=== PATIENT | male | born 1960 | race Caucasian/White ===

== ENCOUNTER 2019-06-09 11:05 | Day surgery (SDC) | payer OTHER ==
[~2019-06-09] VITALS: Ht 182.9 cm; Wt 77.1 kg
[~2019-06-09 11:05] MED LIST: CEFAZOLIN SOD 2 GM in D5W 50 ML IV ONE
[2019-06-09] MEDS ORDERED: HYDROmorphone 1 MG INJ. 1 MG/ML AMPUL IVP PRN ×2 (13:30)
[2019-06-09] MEDS ORDERED: ONDANSETRON HCL 4 MG/2 ML VIAL IVP PRN (13:30)
[2019-06-09] MEDS ORDERED: POLYMYXIN 500,000/BACIT.10,000 UNITS in NS IRR 1 L IR ONE (13:52)
[2019-06-09] MEDS ORDERED: HYDROcodone/ACETAMIN 5-325 MG TAB (NORCO/ VICODIN) PO PRN ×2 (15:30)
[2019-06-09 16:36] VITALS: BP_SYST 113
== END 2019-06-09 16:35 | disposition home or self-care (01) ==
LOC: SMU 11:05 → SDS 11:05
PROVIDERS: ATTEND Surgery
DX: K40.90 Unilateral inguinal hernia, without obstruction or gangrene, not specified as recurrent (principal); E78.5 Hyperlipidemia, unspecified; Z86.010 Personal history of colon polyps
CPT/HCPCS: 49650; 88305; 88333; C1727; C1781; J0690; J7060